=== PATIENT | female | born 1965 | race African-American/Black ===

== ENCOUNTER 2017-03-03 16:38 | Emergency (ER) | payer OTHER, MEDICAID ==
[~2017-03-03] VITALS: Ht 167.6 cm; Wt 77.6 kg
[2017-03-03 16:47] VITALS: BP 124/80
[2017-03-03 18:32] LABS: Urine Bilirubin Negative (Negative); Urine Blood Negative /uL (Negative); Urine Color Yellow (Yellow); Urine Glucose Normal (Normal); Urine Ketone Negative (Negative); Urine Mucus FEW (None Seen); Urine Nitrite Negative (Negative); Urine RBC <1 /hpf (0 - 4); Urine Squamous Epithelial Cell FEW /hpf (<5); Urine Urobilinogen Normal (Negative); Urine pH 5.5 (5.0-8.0)
[2017-03-03 18:45] LABS: Albumin 3.7 g/dL (3.4-5.0); Alkaline Phosphatase 97 U/L (45-117); Anion Gap 5 (5-15); Aspartate Aminotransferase 60 U/L (15-37); BUN/Creatinine Ratio 15.6; Bilirubin, Total 1.1 mg/dL (0.2-1.0); Blood Urea Nitrogen 10 mg/dL (7-18); Calcium 8.9 mg/dL (8.5-10.1); Carbon Dioxide 29 mmol/L (21-32); Chloride 105 mmol/L (98-107); GFR African American 125 mL/min; GFR Non-African American 104 mL/min; Magnesium 2.4 mg/dL (1.6-2.6); Potassium 3.7 mmol/L (3.5-5.1); Sodium 139 mmol/L (136-145); Total Protein 7.8 g/dL (6.4-8.2)
[2017-03-03 18:49] LABS: Basophils # (auto) 0 uL; Basophils % (auto) 1.4 % (0.0-2.0); Eosinophils # (auto) 0.1 uL; Eosinophils % (auto) 4.1 % (0.0-7.0); Hematocrit 36.4 % (36.0-46.0); Hemoglobin 11.6 g/dL (12.2-16.2); Lymphocytes # (auto) 1.2 uL; Lymphocytes % (auto) 36.9 % (10.0-50.0); Mean Corpuscular Hemoglobin 25.3 pg (28.0-32.0); Mean Corpuscular Hgb Conc. 31.9 g/dL (32.0-36.0); Mean Corpuscular Volume 79.3 fL (80.0-100.0); Mean Platelet Volume 7.9 fL (6.9-10.8); Monocytes # (auto) 0.2 uL; Monocytes % (auto) 6.9 % (0.0-12.0); Neutrophils # (auto) 1.6 uL; Neutrophils % (auto) 50.7 % (37.0-80.0); Nucleated Red Blood Cells % 0.1 %; Platelet Count (auto) 243 10^3/uL (140-450); Red Cell Distribution Width 16.5 % (11.8-14.3); White Blood Cell 3.2 10^3/uL (4.4-10.8)
[2017-03-03 18:50] LABS: Glucose 72 mg/dL (74-106)
== END 2017-03-03 19:24 | disposition left against medical advice (07) ==
LOC: ER 16:45
DX: R07.9 Chest pain, unspecified (principal); Z53.21 Procedure and treatment not carried out due to patient leaving prior to being seen by health care provider
CPT/HCPCS: 36415; 71020; 80053; 81001; 83735; 84484; 85025; 93005

== ENCOUNTER 2019-03-06 12:26 | Emergency (ER) | payer OTHER, MEDICAID ==
[~2019-03-06] VITALS: Ht 167.6 cm; Wt 83.9 kg
[2019-03-06 13:16] LABS: Urine WBC None Seen /hpf (0 - 5)
[2019-03-06 13:44] LABS: Urine Bacteria FEW /hpf (None Seen); Urine Blood 3+ /uL (Negative); Urine Mucus FEW (None Seen); Urine Specific Gravity 1.012 (1.001-1.035)
[2019-03-06 15:55] LABS: Basophils # (auto) 0 uL; Monocytes # (auto) 0.2 uL; Nucleated Red Blood Cells % 0.1 %
[2019-03-06 15:57] LABS: Basophils % (auto) 1.2 % (0.0-2.0); Eosinophils # (auto) 0.2 uL; Eosinophils % (auto) 4.3 % (0.0-7.0); Hemoglobin 12.5 g/dL (12.2-16.2); Lymphocytes # (auto) 1.1 uL; Lymphocytes % (auto) 31.1 % (10.0-50.0); Mean Corpuscular Hemoglobin 25.4 pg (28.0-32.0); Mean Corpuscular Volume 79.2 fL (80.0-100.0); Monocytes % (auto) 6.6 % (0.0-12.0); Neutrophils % (auto) 56.8 % (37.0-80.0); Platelet Count (auto) 234 10^3/uL (140-450); Red Blood Cells 4.92 10^6/uL (4.0-5.20); Red Cell Distribution Width 14.2 % (11.8-14.3); White Blood Cell 3.5 10^3/uL (4.4-10.8)
[2019-03-06 16:10] LABS: Albumin 3.9 g/dL (3.4-5.0); BUN/Creatinine Ratio 18.4; Potassium 3.9 mmol/L (3.5-5.1)
[2019-03-06 16:12] LABS: Bilirubin, Total 0.8 mg/dL (0.2-1.0); Total Protein 7.9 g/dL (6.4-8.2)
[2019-03-06 17:16] VITALS: BP 125/81
== END 2019-03-06 17:22 | disposition home or self-care (01) ==
LOC: ER 12:29
DX: R31.9 Hematuria, unspecified (principal); I10 Essential (primary) hypertension; Z86.73 Personal history of transient ischemic attack (TIA), and cerebral infarction without residual deficits; Z98.51 Tubal ligation status; Z90.49 Acquired absence of other specified parts of digestive tract
CPT/HCPCS: 36415; 74176; 80053; 81001; 85025